=== PATIENT | female | born 1960 | race Caucasian/White ===

== ENCOUNTER 2019-09-15 11:16 | Emergency (ER) | payer OTHER ==
--- NOTE | 2019-09-15 12:13 | RAD ---
EXAM: Chest one view: HISTORY: Chest pain, shortness of breath, weakness, history of positive Covid COMPARISON: 08/08/2015 FINDINGS: Again noted is prominent ossification of the right first rib costochondral junction region. Heart size: Within normal limits. Lungs: Minimal increased bronchovascular markings bilaterally, nonspecific but could possibly represe nt some very early or mild patchy pneumonia. No evidence for confluent pneumonia, pleural effusion, acute edema, or pneumothorax, or other signifi cant acute process. IMPRESSION: Increased bronchovascular markings which could represent some minimal early bilateral pneumonitis/aty pical pneumonia. Atherosclerosis of the aorta. Continued short-term follow-up.
[2019-09-15 12:17] LABS: #Lymphocytes 0.4 thou/uL (1.20-3.40); #Monocytes 0.3 thou/uL (0.11-0.59); #Neutrophils 3.1 thou/uL (1.40-6.50); %Eosinophils 0.1 % (0.0-10.0); %Lymphocytes 11.7 % (21.0-51.0); %Neutrophils 81.2 % (42.0-75.0); Hemoglobin 13.9 g/dL (12.0-16.0); Mean Corpuscular HGB CONC 32.9 g/dL (32.0-36.0); Mean Corpuscular Hemoglobin 28.8 pg (27.0-31.0); Mean Corpuscular Volume 87.6 fL (78.0-98.0); Mean Platelet Volume 6.6 fL (7.4-10.4); Platelet Count 258 thou/uL (130-400); RBC Distribution Width 11.7 % (11.5-14.5); Red Blood Cell (RBC) Count 4.83 mill/uL (4.20-5.40); White Blood Cell (WBC) Count 3.8 thou/uL (4.8-10.8)
[2019-09-15] MEDS ORDERED: Ketorolac Tromethamine 30 MG/ML VIAL ONE (12:25)
[2019-09-15] MEDS ORDERED: Dexamethasone 4 MG TAB ONE (12:25)
[2019-09-15 12:41] LABS: ALT (SGPT) 41 U/L (8-55); AST (SGOT) 42 U/L (5-34); Albumin 3.6 g/dL (3.5-5.0); Alkaline Phosphatase 74 U/L (40-110); Anion Gap 13 mmol/L (10-20); BUN (Urea Nitrogen) 14 mg/dL (9.8-20.1); Bilirubin, Total 0.8 mg/dL (0.2-1.2); Calc. Creatinine Clearance 0 mL/min (70-130); Carbon Dioxide 26 mmol/L (22-29); Chloride 98 mmol/L (98-107); Estimated GFR-MDRD 64; Glucose 116 mg/dL (70-105); Potassium 3.3 mmol/L (3.5-5.1); Protein, Total 7.6 g/dL (6.0-8.3); Sodium 134 mmol/L (136-145)
== END 2019-09-15 13:40 | disposition home or self-care (01) ==
LOC: ERS 11:16
DX: U07.1 COVID-19 (principal); F41.9 Anxiety disorder, unspecified; Z79.899 Other long term (current) drug therapy
CPT/HCPCS: 71045; 80053; 84484; 85025; 96361; 96374; J1885; J8540

== ENCOUNTER 2023-04-02 08:53 | Outpatient (CLI) | payer BC | END 2023-04-02 08:54 | disposition home or self-care (01) | LOC: BICULT 08:53 | PROVIDERS: ATTEND Internal Medicine Nephrology | DX: N18.30 Chronic kidney disease, stage 3 unspecified (principal); N28.89 Other specified disorders of kidney and ureter | CPT/HCPCS: 76770; 93975 ==